=== PATIENT | male | born 1950 | race Caucasian/White ===

== ENCOUNTER 2021-10-18 14:01 | Emergency (ER) | payer MEDICARE, BC, OTHER ==
[~2021-10-18] VITALS: Ht 170.2 cm; Wt 114.2 kg
[2021-10-18] MEDS ORDERED: MONT10TA97 (14:56)
[2021-10-18] MEDS ORDERED: IPRA3SP (14:56)
[2021-10-18] MEDS ORDERED: TAMS1CAP17 (14:56)
[2021-10-18] MEDS ORDERED: GABA-1171 (14:56)
[2021-10-18] MEDS ORDERED: ADVA230A (14:56)
[2021-10-18] MEDS ORDERED: METO1TAB32 (14:56)
[2021-10-18] MEDS ORDERED: ENAL-36 (14:56)
[2021-10-18] MEDS ORDERED: FINA5TAB2 (14:56)
[2021-10-18] MEDS ORDERED: MELO15TA28 (14:56)
[2021-10-18] MEDS ORDERED: FAMO1TAB11 (14:56)
[2021-10-18] MEDS ORDERED: PHENAZOPYRIDINE 100 MG TAB PO ONE (15:05)
[2021-10-18 15:45] LABS: BASO % 0.3 % (0.0-1.0); EOS # 0.1 10^3/uL (0.0-0.5); EOS % 0.9 % (0.0-3.0); HEMATOCRIT 46.5 % (42.0-52.0); HEMOGLOBIN 15.8 g/dl (13.5-17.5); LYMPH # 1.4 10^3/uL (1.5-5.0); LYMPH % 10.9 % (24.0-44.0); MEAN CORPUSCULAR HEMOGLOBIN 30.6 pg (27.0-33.0); MEAN CORPUSCULAR VOLUME 90.1 fl (80.0-96.0); MONO # 1.3 10^3/uL (0.0-0.8); MONO % 9.5 % (2.0-8.0); NEUTROPHILS # 10.3 10^3/uL (1.5-8.5); PLATELET COUNT, AUTOMATED 145 10^3/uL (150-450); RED BLOOD COUNT 5.16 10^6/uL (4.30-6.10); WHITE BLOOD COUNT 13.2 10^3/uL (4.0-10.0)
[2021-10-18 16:06] LABS: BLOOD UREA NITROGEN 24 MG/DL (7-18); CALCIUM LEVEL 8.8 MG/DL (8.8-10.2); CARBON DIOXIDE LEVEL 31 MEQ/L (21-32); CHLORIDE LEVEL 104 MEQ/L (98-107); CREATININE FOR GFR 1.07 MG/DL (0.70-1.30); GLOMERULAR FILTRATION RATE > 60.0 (>49); GLUCOSE, FASTING 93 MG/DL (70-100); POTASSIUM SERUM 3.9 MEQ/L (3.5-5.1); SODIUM LEVEL 140 MEQ/L (136-145)
[2021-10-18] MEDS ORDERED: PHEN-372 PO (16:06)
[2021-10-18] MEDS ORDERED: CEFD300C PO (16:06)
[2021-10-18] MEDS ORDERED: CEFDINIR 300 MG CAP (OMNICEF) PO ONE (16:25)
[2021-10-18 16:30] VITALS: BP 148/85
== END 2021-10-18 16:36 | disposition home or self-care (01) ==
LOC: M ED 14:01
DX: N39.0 Urinary tract infection, site not specified (principal); Z87.442 Personal history of urinary calculi; Z88.1 Allergy status to other antibiotic agents; Z79.899 Other long term (current) drug therapy